=== PATIENT | male | born 1940 | race Caucasian/White ===

== ENCOUNTER 2019-10-14 09:48 | Outpatient (CLI) | payer MEDICARE, OTHER, SELFPAY ==
--- NOTE | ~2019-10-14 | US_ITS ---
EXAMINATION: US thyroid DATE: 10/14/2019 10:48 INDICATION: Nontoxic single thyroid nodule TECHNIQUE: Multiple ultrasound images of the thyroid were obtained. COMPARISON: None. FINDINGS: The right thyroid lobe measures 5.4 x 2.5 x 2.2 cm. The left thyroid lobe measures 4.8 x 2.1 x 2.0 c m. There are multiple bilateral thyroid nodules. The largest nodule at the superior pole of the left thyroid lobe is wider than tall, predominantly cystic nodule with a well-defined margins (TI-RADS 1, benign, no FNA recommended). Similar-appearing smaller predominantly cystic 7 mm TI-RADS 1 nodule in the superior right thyroid lobe. There are several subcentimeter solid hypoechoic nodules with well- defined margins in the right thyroid lobe and one in the left thyroid lobe. The latter is wider than tall and without internal echogenic foci (TI-RADS 4, moderately suspicious , FNA if >=1.5 cm, annual followup is >1 cm). The highest grade and largest right-sided nodule is a round 9 mm nodule with zane pheral calcification and internal echogenic foci (TI-RADS 5, highly suspicious , FNA if >=1.0 cm, wale ual followup is >0.5 cm). There is heterogeneous echogenicity and coarsened echotexture throughout raji th thyroid lobes with diffuse increased flow on color Doppler. IMPRESSION: 1. Multinodular goiter with highest grade nodule a 9 mm TI RADS-5 right thyroid nodule for which levis al ultrasound follow-up is recommended. Reviewed, dictated and finalized at location A. IMPRESSION: 1. Multinodular goiter with highest grade nodule a 9 mm TI RADS-5 right thyroid nodule for which annual ultrasound follow-up is recommended.
== END 2019-10-14 09:49 | disposition home or self-care (01) ==
LOC: ANHIMG 09:56
PROVIDERS: Visit Provider Internal Medicine Endocrinology, Diabetes & Metabolism
DX: E04.2 Nontoxic multinodular goiter (principal)
CPT/HCPCS: 76536

== ENCOUNTER → 2021-04-24 00:05 | Outpatient (CLI) | payer MEDICARE, OTHER, SELFPAY ==
[2021-04-24 13:57] LABS: Influenza A QL RT-PCR Negative (Negative); Influenza B QL RT-PCR Negative (Negative); SARS-CoV-2 RNA PCR Negative
== END ==
PROVIDERS: PCP Internal Medicine; Visit Provider Internal Medicine
DX: R68.89 Other general symptoms and signs (principal); Z20.822 Contact with and (suspected) exposure to COVID-19
CPT/HCPCS: 87502; C9803; U0003; U0005

== ENCOUNTER 2021-05-04 11:30 | Outpatient (CLI) | payer MEDICARE, OTHER, SELFPAY ==
--- NOTE | ~2021-05-04 | XR_ITS ---
EXAMINATION: XR hip LT min 2V EXAM DATE: 05/04/2021 11:49 INDICATION: M25.552 - Pain in left hip. TECHNIQUE: Left hip frontal, 'frog leg' projections for interpretation. There is no prior study for comparison. FINDINGS: Smooth left hip femoral head contour, no radiographic evidence of avascular necrosis. Ther e is moderate primary osteoarthritis. There are no acute fractures or dislocations identified. There is no subcutaneous gas. The soft tissue is unremarkable. IMPRESSION: Moderate left hip osteoarthritis. Reviewed, dictated and finalized at location B. GE EXPERT
== END 2021-05-04 11:31 | disposition home or self-care (01) ==
LOC: ANHIMG 11:32
PROVIDERS: PCP Internal Medicine; Visit Provider Internal Medicine
DX: M25.552 Pain in left hip (principal); M16.12 Unilateral primary osteoarthritis, left hip
CPT/HCPCS: 73502

== ENCOUNTER 2021-10-26 16:12 | Outpatient (CLI) | payer MEDICARE, OTHER, SELFPAY ==
--- NOTE | ~2021-10-26 | XR_ITS ---
EXAMINATION: XR abdomen/kub 1V INDICATION: Constipation, unspecified TECHNIQUE: Supine views of the abdomen were obtained on 2 radiographs. COMPARISON: None FINDINGS: The bowel gas pattern is normal. No dilated loops of bowel are evident. Surgical clips in t he right upper quadrant are likely from prior cholecystectomy. The visualized lung bases are clear. T here is moderate osteoarthritis of hips linear densities in the pelvis may relate to prostate surgery . IMPRESSION: 1. No radiographic correlate for the patient's symptoms. Reviewed, dictated and finalized at location B.
== END 2021-10-26 16:13 | disposition home or self-care (01) ==
PROVIDERS: PCP Internal Medicine; Visit Provider Internal Medicine
DX: K59.00 Constipation, unspecified (principal)
CPT/HCPCS: 74018

== ENCOUNTER 2022-10-25 12:22 | Outpatient (CLI) | payer MEDICARE, OTHER, SELFPAY ==
--- NOTE | ~2022-10-25 | MMUS_ITS ---
EXAMINATION: MM diagnostic rivka LT w waldemar, US breast LT complete HISTORY: . Left subareolar breast lump TECHNIQUE: Bilateral MLO and left CC 3-D tomosynthesis images were performed and synthetic 2-D images were generated. CAD analysis was submitted and interpreted. High resolution complete left breast ult rasound examination: Renal 4 quadrants and subareolar was performed. COMPARISON: None; baseline examination BREAST PARENCHYMAL COMPOSITION: The breasts are heterogeneously dense, which may obscure small masses . FINDINGS: MAMMOGRAPHIC FINDINGS: There is increased density in both subareolar areas, much more prominent on the left, measuring up to 3.2 cm transverse, 2 cm AP and 2.6 cm vertical dimension., which may be due to bilateral gynecomasti a, left greater the right. However, left subareolar breast mass is not excluded. Left breast ultrasou nd examination was performed. No malignant calcification, or architectural distortion, skin thickening or retraction of either brant st is detected. ULTRASOUND: . There is irregular hypoechoic tissue with prominent vascularity in the subareolar area of the left breast, corresponding to the mammographic finding. Due to the asymmetry with the right breast, the irregular margins and prominent vascularity, ultrasou nd-guided biopsy is recommended. IMPRESSION: 1. Suspicious abnormality left subareolar area; biopsy should be considered 2. Ultrasound-guided biopsy of left subareolar area is recommended BI-RADS category 4, suspicious findings. Reviewed, dictated and finalized at location A. IMPRESSION: 1. Suspicious abnormality left subareolar area; biopsy should be considered 2. Ultrasound-guided biopsy of left subareolar area is recommended BI-RADS category 4, suspicious findings.
== END 2022-10-25 12:23 | disposition home or self-care (01) ==
PROVIDERS: PCP Family Medicine; Visit Provider Nurse Practitioner
DX: N63.20 Unspecified lump in the left breast, unspecified quadrant (principal); R92.8 Other abnormal and inconclusive findings on diagnostic imaging of breast
CPT/HCPCS: 76641; 77061; 77065; G0279

== ENCOUNTER 2022-12-28 15:51 | Emergency (ER) | payer MEDICARE, OTHER, SELFPAY ==
--- NOTE | ~2022-12-28 | XR_ITS ---
EXAMINATION: XR abdomen obstructive series DATE: 12/28/2022 16:18 INDICATION: Lower abdominal pain TECHNIQUE: Frontal supine and upright views of the abdomen were obtained. COMPARISON: 10/26/2021 FINDINGS: Cholecystectomy clips in right upper quadrant. There are multiple gas-filled but not frankly dilated loops of small bowel throughout the central abdomen and pelvis. Additional moderate amount of gas and a small amount of stool scattered throughout the colon. Air-fluid level in the stomach. No free intr aperitoneal gas. Visualized lung bases are clear. Heart size is normal. There are bridging osteophy antonia at multiple levels consistent with diffuse idiopathic skeletal hyperostosis (DISH). IMPRESSION: 1. Nonspecific bowel gas pattern with gas scattered throughout multiple loops of small bowel but wit hout martina dilation to suggest obstruction. Reviewed, dictated and finalized at location A. IMPRESSION: 1. Nonspecific bowel gas pattern with gas scattered throughout multiple loops of small bowel but without martina dilation to suggest obstruction.
[2022-12-28 16:00] VITALS: BP 128/48; PULSE 66; RESP 16; TEMP 36.4; O2SAT 99
--- NOTE | 2022-12-28 16:10 | ED.ABDPAIN ---
HPI - Abdominal Pain General Chief Complaint: Abdominal Pain Stated Complaint: Abdominal Pain Time Seen by Provider: 12/28/22 16:10 Source: patient and family Mode of arrival: ambulatory Limitations: no limitations History of Present Illness HPI narrative: 82-year-old male with history of dementia presents with today with complaint of abdominal distention for 2 days. states unsure of last bowel movement due to patient's dementia. Reports history of constipation, bowel obstruction in the past. states that she would like to try milk of magnesia at home but wanted to make sure that was okay prior to giving. Once patient to have x-ray to rule out obstruction prior to treating constipation. Patient is well-appearing. Eating and drinking normally. Afebrile. Denies urinary complaints. All systems reviewed and negative except as noted above. Related Data Home Medications Medication Instructions Recorded Confirmed aspirin 81 mg tablet,delayed 81 mg PO DAILY 09/19/19 12/28/22 release casanthranol-docusate sodium 30 1 cap PO HS 12/28/22 12/28/22 mg-100 mg capsule Allergies Allergy/AdvReac Type Severity Reaction Status Date / Time No Known Allergies Allergy Verified 12/28/22 15:52 Review of Systems Review of Systems: CONSTITUTIONAL: Denies fever, chills, or sweats. EYES: Denies visual changes, redness, or discharge. ENT: Denies rhinorrhea, congestion, sore throat, or otalgia. CARDIOVASCULAR: Denies chest pain, palpitations, or edema. RESPIRATORY: Denies cough or dyspnea. GASTROINTESTINAL: Reports abdominal pain, distension. Denies nausea, vomiting, or diarrhea. GENITOURINARY: Denies dysuria or hematuria. SKIN: Denies rash or itching. MUSCULOSKELETAL: Denies back pain, joint pain, or myalgia. NEUROLOGIC: Denies headache, numbness, or weakness. PSYCHIATRIC: Denies anxiety or depression. All other systems reviewed are negative, except as documented in HPI. [facility] Past Medical History Medical History B12 deficiency CAD (coronary artery disease) CKD stage G3a/A1, GFR 45-59 and albumin creatinine ratio <30 mg/g Dementia DM type 2 with diabetic peripheral neuropathy Heart disease High blood pressure History of intestinal obstruction History of prostate cancer Hx of cataract Hypertensive heart and CKD Melena Thyroid nodule Visual loss Surgical History Surgical History Hx of cardiac cath Hx of cholecystectomy Family History Family History Mother Breast cancer Colon cancer Hypertension Sibling Chest pain Diabetes mellitus Social History Social History Smoking packs per day: 1 Smoking cigarettes per day: 20.0 Years smoked: 10 Smoking pack-years: 10.00 Smoking status: Former smoker Second hand tobacco smoke exposure: No Smoking end date: 03/06/72 Alcohol intake: former Alcohol use details: Rarely Substance use: never Substance use type: does not use Lack of Transportation: No Lack of Food: Never True Current Housing: I Have Housing Concerned About Future Housing: No Difficulty Paying Gas/Electric Bills: No Difficulty Paying for Meds: No Currently Unemployed: No Education: Bachelor's Degree Difficulty w/ Childcare or Family Care: No Living arrangements: with family Additional living arrangements comments: lives with Comments At time of signature, agree with nursing past medical, surgical, social and family history. There is no relevant family history pertinent to the presenting complaint. Exam Narrative: GENERAL: This is a well-nourished, well-developed patient, in no apparent distress. HEAD: normocephalic, atraumatic. EYES: PERRL. Sclera clear/white. Vision is grossly intact. EARS: Exter
== END 2022-12-28 16:35 | disposition home or self-care (01) ==
PROVIDERS: Emergency Provider Nurse Practitioner Family; PCP Family Medicine
DX: K59.00 Constipation, unspecified (principal); R14.0 Abdominal distension (gaseous); Z87.891 Personal history of nicotine dependence; I13.10 Hypertensive heart and chronic kidney disease without heart failure, with stage 1 through stage 4 chronic kidney disease, or unspecified chronic kidney disease; E11.22 Type 2 diabetes mellitus with diabetic chronic kidney disease; N18.31 Chronic kidney disease, stage 3a; Z79.4 Long term (current) use of insulin; I25.10 Atherosclerotic heart disease of native coronary artery without angina pectoris; F03.90 Unspecified dementia, unspecified severity, without behavioral disturbance, psychotic disturbance, mood disturbance, and anxiety; E11.42 Type 2 diabetes mellitus with diabetic polyneuropathy; Z85.46 Personal history of malignant neoplasm of prostate
CPT/HCPCS: 74019; 99213; G0463

== ENCOUNTER 2023-04-06 14:39 | Outpatient (CLI) | payer MEDICARE, OTHER, SELFPAY ==
--- NOTE | ~2023-04-06 | XR_ITS ---
XR ankle LT 2V DATE: 04/06/2023 15:02 INDICATION: Left ankle pain TECHNIQUE: 2 views COMPARISON: None FINDINGS: Osteopenia. There is mild lateral soft tissue swelling. Mild plantar and posterior calcaneal enthesopathy. No fracture or dislocation of the ankle or disruption of the ankle mortise. No periosteal reaction or bone destruction. Prominent posterior tibial artery calcification. IMPRESSION: Osteopenia Mild plantar and posterior calcaneal enthesopathy Mild lateral soft tissue swelling Prominent arterial calcification. Reviewed, dictated and finalized at location L. K TRAVEL RESERVATIONS
== END 2023-04-06 14:40 | disposition home or self-care (01) ==
LOC: ANHIMG 14:42
PROVIDERS: PCP Family Medicine; Visit Provider Nurse Practitioner
DX: M77.32 Calcaneal spur, left foot (principal); R22.42 Localized swelling, mass and lump, left lower limb; M85.872 Other specified disorders of bone density and structure, left ankle and foot
CPT/HCPCS: 73600